=== PATIENT | female | born 1955 | race Two or more races ===

== ENCOUNTER 2025-04-30 02:18 | Emergency (ER) | payer MEDICARE, MEDICAID, SELFPAY ==
[2025-04-30 02:22] VITALS: BP 156/66; PULSE 76; RESP 18; TEMP 36.8; O2SAT 98
[2025-04-30 02:27] VITALS: PULSE 90
[2025-04-30 03:05] VITALS: BP 180/85; PULSE 78; RESP 16; TEMP 36.8; O2SAT 98
--- NOTE | 2025-04-30 03:15 | EDNOTE_ITS ---
ED Chest Pain RME/HPI General Chief Complaint: Anxiety Stated Complaint: HIGH BLOOD PRESSURE Time Seen by Provider: 04/30/25 03:11 Arrival date/time: 04/30/25 02:18 RME / HPI RME / HPI narrative: See MDM for Dr. dAkins's HPI Documentation. Related Data Home Medications ?Medication ?Instructions ?Recorded ?Confirmed amlodipine 10 mg tablet 10 mg PO QDAY 03/16/2403/16 buspirone 7.5 mg tablet 7.5 mg PO BID 03/16/2403/16 cyclobenzaprine 10 mg tablet 10 mg PO BID 03/16/2405/02 loratadine 10 mg tablet 10 mg PO QDAY 03/16/2403/16 Previous Rx's ?Medication ?Instructions ?Recorded atorvastatin 40 mg tablet 40 mg PO QDAY 30 days #30 ta bs 03/17/24 carvedilol 12.5 mg tablet 12.5 mg PO BID 30 days #60 t abs 03/17/24 lisinopril 20 mg tablet 20 mg PO QDAY PRN SBP >160 3 0 days 03/17/24 #30 tabs cefdinir 300 mg capsule 300 mg PO BID #14 caps 04/30 clonidine HCl 0.1 mg tablet 0.1 mg PO BID #60 tabs ondansetron 4 mg disintegrating 4 mg PO TID PRN nausea and 04/30/25 tablet vomiting 30 days #10 tabs Allergies Allergy/AdvReac Type Severity Reaction Status Date / Time No Known Allergies Allergy Unverified 04/29/24 18:22 Review of Systems Review of Systems Systems Reviewed: All systems reviewed, normal except as documented Past Medical History Past Medical History CARDIAC: Positive Cardiac Disorders, Hypercholesterolemia, Valvular Heart Disease and Hypertension RESPIRATORY: Positive Tuberculosis (30 years ago) GENITOURINARY: Positive Genitourinary Disorders MUSCULOSKELETAL: Positive Musculoskeletal Disorders, Arthritis and Osteoporosis PSYCHO/SOCIAL: Positive Anxiety OTHER HISTORY: Positive Hospitalization, Falls (few months ago), Chicken Pox and Measles Family History FAMILY HISTORY: Positive Family Cardiac Disorders Surgical History SURGICAL: Positive Section ED Exam Narrative Physical exam: See MDM for Dr. Adkins's Physical Exam Documentation. Course Course Course Narrative: CXR was ordered for determining the etiology of shortness of breath. Quality Measures none Orders Category Date Time Status Bedside COVID-19 Antigen Test NOW Care 04/30/25 03:13 Completed Bedside Influenza A&B Antigen Test NOW Care 04/30/25 03:13 Completed EKG (ED ONLY) *Do not use* NOW Care 04/30/25 03:15 Completed Saline [Insert IV] NOW Care 04/30/25 03:[address] chest abdomen pelvis wo Stat Exams 04/30/25 03:[address] head/brain wo con Stat Exams 04/30/25 03:16 Completed EKG (ED Only) Stat Exams 04/30/25 03:15 Draft XR chest 1V portable Stat Exams 04/30/25 03:15 Completed Amylase Stat Lab 04/30/25 03:45 Completed BNP [B-Type Natriuretic Peptide] Stat Lab 04/30/25 03:45 Completed Bilirubin,Direct Stat Lab 04/30/25 03:45 Completed CBC Stat Lab 04/30/25 03:45 Completed CMP [Comprehensive Metabolic Panel] Stat Lab 04/30/25 03:45 Completed CRP [C-Reactive Protein] Stat Lab 04/30/25 03:45 Completed ESR [Sed Rate (ESR)] Stat Lab 04/30/25 03:45 Completed Lipase Stat Lab 04/30/25 03:45 Completed Magnesium Stat Lab 04/30/25 03:45 Completed Procalcitonin Stat Lab 04/30/25 03:45 Completed TSH [Thyroid Stimulating Hormone] Stat Lab 04/30/25 03:45 Completed Troponin I Stat Lab 04/30/25 03:45 Completed UA, C/S IF [Urinalysis, C/S if Indicated] Stat Lab 04/30/25 03:39 Completed Urine Culture Stat Lab 04/30/25 03:39 Received Morphine Inj Med 04/30/25 03:15 Discontinued 2 mg IVP X1 ONE Ondansetron Inj [Zofran Inj] Med 04/30/25 03:13 Discontinued 4 mg IVP X1 ONE Sodium Chloride 0.9% 1000 ml [Ns] 1,000 ml Med 04/30/25 03:13 Discontinued IV 999 mls/hr cefTRIAXone/D5w 1gm IV premix [Rocephin/D5w 1gm IV Med 04/30/25 04:07 Discontinued premix] 1 gm in 50 ml IV X1 cloNIDine HCL [Catapres] Med 04/30/25 03:13 Discontinued 0.2 mg PO X1 ONE Vital Signs Vital signs: Vital Signs Temperature 98.3 F 08/22/25 02:22 Pulse Rate 76 04/30/25 02:22 Respiratory Rate 18 04/30/25 02:22 Blood Pressure 156/66 H 04/30/25 02:22 Pulse Oximetry (%) 98 04/30/25 02:22 Oxygen Delivery Method Room Air 04/30/25 02:22 Chest Pain MDM Narrative MDM Narrative:: Scribe Attestation: I, Lisbet Guo, am scribing for and in the presence of Dr. Adkins. This section includes all my notes and documentations, including HPI, PE, and ED course. 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 She took 10 mg of Lisinopril few hours ago. No other complaints. ROS: All negative except as documented in HPI. Physical Exam: General: Alert and oriented. No acute distress when remaining still. High BP noted. Eyes: Conjunctivae and lids clear. PERRL. EOMI. ENT: No nasal congestion. Neck: Supple. Heart: RRR. Lungs: No respiratory distress. Good air movement. No rhonchi, wheezing, rales. Abdomen: Soft and nontender. Normal bowel sounds. No distension. No rebound or guarding. Back: No CVA tenderness. Skin: Warm and dry. Neuro: Alert and oriented X 3. CN 2-12 grossly normal. No peripheral motor deficits. I reviewed all diagnostic test results: My interpretation of the EKG: NSR (71 bpm) with no ST-T changes. My interpretation of the chest x-ray is: NAD. My review of the Head/Brain CT report is: NAD. My review of the Chest/Abdomen/Pelvis CT report is NAD. Blood tests and urine tests remarkable for UTI. Covid/Influenza: negative. At this point, diagnoses include: UTI, Hypertension. Treatment here included: IVF, Rocephin 1 G, Morphine 2 mg, Zofran 4 mg, Catapres 0.2 mg. Significant improvement noted. Recommended outpatient care. Based on my best medical judgment, made decision no further evaluation or darshana tment indicated at this time. Patient understands and agrees to the discharge instructions customized and printed, see below. Discharge instructions from Dr. Adkins: 1.? After evaluation, there is no life-threatening condition. Such as stroke or brain tumor or heart attack. But you have UTI (see attached handout).? 2.? Take cefdinir to kill the germs causing the infection. 3.? For good hydration, increase oral fluid and maintain clear urine.? If dark or yellow, increase oral fluid. Zofran for nausea/vomiting.? 4. To keep your BP down: Take Clonidine 0.1 mg pill(s) every 12 hours as needed based on SBP (higher number of BP). SBP > 140, take one pill. SBP > 160, take two pills. SBP > 180, take three pills. SBP > 200, take four pills. 5.? See a private doctor on 05/03/2025 for recheck.?? Ask to review all test results and official radiology reports, to make sure you receive all necessary follow-ups and monitoring. Ask to check the final urine culture results from today to make sure cefdinir doesn't need to be changed due to resistance. To make sure there is no serious underlying heart condition, ask to help you get more tests for your heart that cannot be done here in the ER. Such as Holter Monitor (cardiac monitoring at home from a day to even a month), heart stress test (on treadmill or with medication), echocardiogram (imaging of your heart structures), heart catherization (checking for blockages in your heart arteries), and a referral to see a Serv[employer]en[employer] Administrator Developer. 6.? Seek immediate medical care with worsening, fever, SBP > 220, or with any concerns. Osei Adkins MD Patient data External records reviewed:: [facility] previous records (Reviewed prior ED records from 04/29/24. Patient was seen for Hypertension.) Clinical information provided by:: patient Social determinants that could affect healthcare access:: none Patient has the following chronic illnesses:: Hypercholesterolemia, Valvular Heart Disease, Hypertension, Tuberculosis, Arthritis, Osteoporosis, Anxiety How is presenting disease/condition affected by chronic disease/condition?: exacerbated by Evaluation data The following diagnostics were reviewed and interpreted by me:: EKG tracing(s) (My interpretation of the EKG: NSR (71 bpm) with no ST-T changes. Osei Adkins MD) Lab and/or radiology exams considered but not ordered:: None Interpretation Summary: I reviewed all diagnostic test results: My interpretation of the EKG: NSR (71 bpm) with no ST-T changes. My interpretation of the chest x-ray is: NAD. My review of the Head/Brain CT report is: NAD. My review of the Chest/Abdomen/Pelvis CT report is NAD. Blood tests and urine tests remarkable for UTI. Covid/Influenza: negative. Medications / Prescriptions Medications or Prescriptions considered but not ordered:: None Medication administrations:: Medication Administration History Discontinued Medications Clonidine (Clonidine Hcl 0.1 Mg Tablet) 0.2 mg PO X1 ONE Stop: 04/30/25 03:14 Last Admin: 04/30/25 04:08 Dose: 0.2 mg Documented By: CRYSTAL Sodium Chloride (Ns) 1,000 mls @ 999 mls/hr IV .Q1H1M ONE Stop: 04/30/25 04:13 Last Infusion: 04/30/25 05:09 Dose: Infused Documented By: Admin: 04/30/25 04:08 Dose: 999 mls/hr Documented By: CRYSTAL Ceftriaxone Sodium/Dextrose (Rocephin/D5w 1gm Iv Premix) 1 gm in 50 mls @ 100 mls/hr IV X1 ONE Stop: 04/30/25 04:36 Last Infusion: 04/30/25 05:36 Dose: Infused Documented By: Admin: 04/30/25 04:53 Dose: 100 mls/hr Documented By: CRYSTAL Morphine Sulfate (Morphine Sulf Inj 10 Mg/Ml Vial) 2 mg IVP X1 ONE Stop: 04/30/25 03:16 Last Admin: 04/30/25 04:07 Dose: 2 mg Documented By: CRYSTAL Ondansetron HCl (Ondansetron Inj 2 Mg/Ml Inj 2 Ml) 4 mg IVP X1 ONE; Protocol Stop: 04/30/25 03:14 Last Admin: 04/30/25 04:07 Dose: 4 mg Documented By: CRYSTAL IVF, Rocephin 1 G, Morphine 2 mg, Zofran 4 mg, Catapres 0.2 mg Consultations Consultation(s) initiated? (list below): No Diagnosis Chest Pain Differential Diagnosis: stable angina, unstable angina pectoris, atypical chest pain, st elevation myocardial infarction, costochondritis, chest pain and biliary colic Most likely diagnosis given after review of the tests above:: UTI, Hypertension Admission Indicated Admission indicated?: not indicated Explain why admission is indicated or not indicated:: With significant improvement and no condition needing emergent intervention, there was no indication for admission. Admission Request Was there a request for admission?: No Disposition Plan Disposition Plan: Discharge Discharge Attestation Discharge Attestation: The patient and all family members were given an opportunity to ask questions and understood the discharge instructions. Discharge instructions specifically effects, indications for sooner follow up or return to the emergency department, and the expected course of current diagnosis. Patient condition: Stable Discharge Plan Plan Patient Disposition: HOME (Self Care) Prescriptions/Referrals Prescriptions/Med Rec: New clonidine HCl 0.1 mg tablet 0.1 mg PO BID Qty: 60 0RF ondansetron 4 mg tablet,disintegrating 4 mg PO TID PRN (Reason: nausea and vomiting) 30 Days Qty: 10 0RF cefdinir 300 mg capsule 300 mg PO BID Qty: 14 0RF No Action buspirone 7.5 mg tablet 7.5 mg PO BID Patient Comments: take 1 tablet by mouth twice a day cyclobenzaprine 10 mg Tablet 10 mg PO BID amlodipine 10 mg tablet 10 mg PO QDAY loratadine 10 mg Tablet 10 mg PO QDAY carvedilol 12.5 mg tablet 12.5 mg PO BID 30 Days Qty: 60 3RF Rx Instructions: Take twice daily with meals. HOLD if systolic BP < 100. lisinopril 20 mg tablet 20 mg PO QDAY PRN (Reason: SBP >160) 30 Days Qty: 30 0RF atorvastatin 40 mg tablet 40 mg PO QDAY 30 Days Qty: 30 3RF Problem List Clinical Impression: UTI (urinary tract infection), Hypertension Patient/Caregiver Discharge Instructions Discharge Activity: activity as tolerated Education Materials: ED Hypertension, Established, ED CYSTITIS Female Adult Additional Instructions: Discharge instructions from Dr. Adkins: 1.? After evaluation, there is no life-threatening condition. Such as stroke or brain tumor or heart attack. But you have UTI (see attached handout).? 2.? Take cefdinir to kill the germs causing the infection. 3.? For good hydration, increase oral fluid and maintain clear urine.? If dark or yellow, increase oral fluid. Zofran for nausea/vomiting.? 4. To keep your BP down: Take Clonidine 0.1 mg pill(s) every 12 hours as needed based on SBP (higher number of BP). SBP > 140, take one pill. SBP > 160, take two pills. SBP > 180, take three pills. SBP > 200, take four pills. 5.? See a private doctor on 05/03/2025 for recheck.?? Ask to review all test results and official radiology reports, to make sure you receive all necessary follow-ups and monitoring. Ask to check the final urine culture results from today to make sure cefdinir doesn't need to be changed due to resistance. To make sure there is no serious underlying heart condition, ask to help you get more tests for your heart that cannot be done here in the ER. Such as Holter Monitor (cardiac monitoring at home from a day to even a month), heart stress test (on treadmill or with medication), echocardiogram (imaging of your heart structures), heart catherization (checking for blockages in your heart arteries), and a referral to see a Serv[employer] Administrator Developer. 6.? Seek immediate medical care with worsening, fever, SBP > 220, or with any concerns. Instrucciones de leidy del Dr. Adkins: 1. Tras la evaluaci?n, no se observa ninguna afecci?n potencialmente mortal. [place] un derrame cerebral, un tumor cerebral o un infarto. Shailesh tiene ita infecci?n urinaria (consulte el folleto adjunto). 2. Home Garden cefdinir para eliminar los g?rmenes que causan la infecci?n. 3. Para ita buena hidrataci?n, aumente la ingesta de l?quidos y mantenga la orina von. Si la orina es oscura o amarilla, aumente la ingesta de l?quidos. Zofr?n para las n?useas y los v?mitos. 4. Para controlar la presi?n arterial: Home Garden ita o m?s pastillas de clonidina de 0.1 mg cada 12 horas seg?n sea necesario, seg?n la presi?n arterial sist?lica (PAS). PAS > 140: tome ita pastilla. PAS > 160: tome dos pastillas. PAS > 180: tome yumiko pastillas. PAS > 200: tome cuatro pastillas. 5. Consulte con un m?dico particular el 03/05/2025 para iat nueva revisi?n. Solicite la revisi?n de todos los resultados de las pruebas y los informes radiol?gicos oficiales para asegurarse de recibir todos los seguimientos y la monitorizaci?n necesarios. Solicite la revisi?n de los resultados finales del urocultivo de hoy para asegurarse de que no sea necesario cambiar la dosis de cefdinir debido a la resistencia. Para asegurarse de que no haya ita afecci?n card?jaimee subyacente grave, solicite ayuda para realizar m?s pruebas card?acas que no se pueden realizar en urgencias. Kimberly un Holter (monitorizaci?n card?jaimee en casa desde un d?a hasta un mes), ita prueba de esfuerzo card?aco (en cinta o con medicaci?n), un e cocardiograma (im?genes de las estructuras card?acas), un cateterismo card?aco (para detectar obstrucciones en las arterias card?acas) y ita derivaci?n a un cardi?logo. 6. Busque atenci?n m?dica inmediata si presenta empeoramiento, fiebre, presi?n arterial sist?lica > 220 o si tiene alguna inquietud. Print Language: [place]orese Stand Alone Forms: [place] Award Info., Patient Portal Info Letter
--- NOTE | 2025-04-30 03:15 | EKG_ITS ---
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
--- NOTE | 2025-04-30 03:15 | XR_ITS ---
Examination: CT chest, without intravenous contrast. CT abdomen, without intravenous contrast. CT pelvis, without intravenous contrast. 2-D sagittal and coronal reconstructions. 3-D reconstructions. Date and time of exam:April 30, 2025, 0357 hours, comparison CT chest December 14, 2015. INDICATIONS: Onset chest pain abdominal pain and shortness of breath and vomiting today. CTDI vol (mgy) 14.5. DLP (MGycm)1004. Technique: Multiple CT images, 3.0 mm slice thickness, obtained chest, abdomen, pelvis, with the high-resolution 64 slice scanner.. Sagittal and coronal 2-D reconstructions are obtained. 3-D reconstructions Low dose protocols were performed. One or more of the following dose reduction techniques were used; automated exposure control, adjustment of the mA and/or KV according to patient size, use of iterative reconstruction technique. Findings: Thoracic aortic calcification no aneurysmal dilatation. Pulmonary artery segments are not enlarged. No paratracheal tracheobronchial or bronchopulmonary adenopathy No pneumonia pulmonary edema or pleural disease No liver or splenic or renal lesion Tiny gallstone Mesenteric edema No bowel obstruction No free air No pericecal inflammatory change Abundant stool in the rectum Contracted urinary bladder Prominent osteopenia Moderate narrowing hip joints IMPRESSION: No acute process in the chest Recommend gallbladder sonography to confirm small gallstones Edema in the mesentery, consider mesenteric radiculitis
--- NOTE | 2025-04-30 03:15 | XR_ITS ---
Examination: PA chest single view TECHNIQUE: Upright PA chest single view Date and time: April 30, 2025 0317 hours INDICATIONS: Chest pain shortness of breath today, high blood pressure today. FINDINGS: Normal heart size. Stable nodule right lower lobe compared with April 29, 2024 No interval pneumonia or pulmonary edema Moderate osteopenia IMPRESSION: No interval pneumonia or pulmonary edema
--- NOTE | 2025-04-30 03:16 | XR_ITS ---
Examination: CT brain head without contrast. 2-D sagittal coronal reconstructions Date and time of exam:April 30, 2025, 0400 hours. INDICATIONS: Onset high blood pressure with headache today. CTDI: vol (mGy):42.0. DLP: (mGycm):761. Technique: Multiple CT axial sections of the brain have been obtained, 5 mm slice thickness. Contrast has not been administered. 2-D sagittal, coronal reconstructions have been obtained Low dose protocols were performed. One or more of the following dose reduction techniques were used; automated exposure control, adjustment of the mA and/or KV according to patient size, use of iterative reconstruction technique. Findings: No significant ventricular enlargement. Intra-axial or extra-axial hemorrhage density is not seen. No mass effect or midline shift Basal cisterns are not remarkable. Fourth ventricle is midline. Cranial vault intact. Impression: Negative for acute hemorrhage, mass effect or midline shift Advise clinical correlation and follow up accordingly.
[2025-04-30 03:49] LABS: Collection Type, Urine Clean Catch
[2025-04-30 03:57] LABS: Bacteria,Urine 4+; Bilirubin,Urine Negative (Negative); Blood,Urine 2+ (Negative); Clarity,Urine Clear (Clear/Hazy); Color,Urine Lt-Yellow (Lt Yel-Yel); Glucose, Urine Negative (Negative); Hyaline Casts,Urine 1 /hpf (0-1); Ketones,Urine Negative (Negative); Leukocyte Esterase,Urine Positive (Negative); Nitrite,Urine Positive (Negative); PH,Urine 6.0 (5.0-7.0); Protein,Urine Negative (Neg - Trace); RBC,Urine 12 /hpf (0-3); Specific Gravity,Urine 1.020 (1.001-1.035); Squamous Epithelial Cell,Urine 2 /hpf (0-5); Urobilinogen,Urine Negative mg/dL (0.0-1.0); WBC,Urine 8 /hpf (0-5)
[2025-04-30 03:58] LABS: Sed Rate (ESR) 51 mm/hr (0-30)
[2025-04-30 04:00] LABS: Culture Indicated,Urine Yes
[2025-04-30 04:00] LABS: Basophils # (Auto) 0.0 Thou/mm3 (0.0-0.2); Basophils % (Auto) 0 % (0-2.5); Eosinophils # (Auto) 0.2 Thou/mm3 (0.0-0.5); Eosinophils % (Auto) 1 % (0-10); Hematocrit 38.3 % (36.0-46.0); Hemoglobin 12.1 g/dL (12.0-16.0); Immature Granulocytes Auto 0.07 Thou/mm3 (0.00-0.00); Lymphocytes # (Auto) 2.7 Thou/mm3 (1.0-4.8); Lymphocytes % (Auto) 22 % (10-50); Mean Corpuscular HGB Conc 31.6 g/dl (31.0-37.0); Mean Corpuscular Hemoglobin 28.3 pg (25.0-35.0); Mean Corpuscular Volume 90 fL (80-100); Monocytes # (Auto) 0.6 Thou/mm3 (0.0-0.8); Monocytes % (Auto) 5 % (0-12); Neutrophils # (Auto) 8.6 Thou/mm3 (1.8-7.7); Neutrophils % (Auto) 71 % (37-80); Nucleated Red Blood Cell # 0.00 Thou/mm3 (0.00-0.00); Nucleated Red Blood Cell % 0 /100 WBC (0); Platelet Count 208 Thou/mm3 (140-440); RDW Standard Deviation 46.2 fL (36.4-46.3); Red Blood Count 4.27 Miln/mm3 (4.00-5.20); White Blood Count 12.2 Thou/mm3 (3.6-11.0)
[2025-04-30] MEDS: MORPHINE SULF INJ 10 MG/ML VIAL 2 MG IVP (04:07)
[2025-04-30] MEDS: ONDANSETRON INJ 2 MG/ML INJ 2 ML 4 MG IVP (04:07)
[2025-04-30 04:08] VITALS: BP 171/84; PULSE 75
[2025-04-30] MEDS: SODIUM CHLORIDE 0.9% 1000 ML 1,000 ML 999 ML IV (04:08)
[2025-04-30 04:21] LABS: B-Type Natriuretic Peptide 56 pg/mL (0-100)
[2025-04-30 04:27] LABS: Alanine Aminotransferase 34 U/L (10-49); Albumin, Serum 4.3 gm/dL (3.4-4.8); Albumin/Globulin Ratio 1.8 (1.2-2.2); Alkaline Phosphatase 88 U/L (46-116); Amylase 89 U/L (30-118); Anion Gap 11 (7-16); Aspartate Amino Transferase 44 U/L (0-34); BUN/Creatinine Ratio 21 Ratio (12-20); Bilirubin,Direct < 0.1 mg/dL (0.0-0.3); Bilirubin,Total 0.2 mg/dL (0.3-1.2); Blood Urea Nitrogen 21 mg/dL (9-23); C-Reactive Protein < 0.5 mg/dL (0.0-0.9); Calcium 9.4 mg/dL (8.3-10.6); Calcium (Corrected) 9.4 mg/dL (8.5-10.1); Carbon Dioxide 20.1 mMol/L (20.0-31.0); Chloride 109 mMol/L (98-107); Creatinine (Component) 1.0 mg/dL (0.6-1.3); Globulin 2.4 gm/dL (2.3-3.5); Glucose 137 mg/dL (74-106); Lipase 36 U/L (12-53); Magnesium 2.0 mg/dL (1.6-2.6); Osmolality,Calculated 284 (275-295); Potassium 4.6 mMol/L (3.4-5.1); Procalcitonin 0.04 ng/ml (0.0-0.49); Sodium 140 mMol/L (136-145); Thyroid Stimulating Hormone 4.76 uIU/mL (0.55-4.78); Total Protein 6.7 gm/dL (5.7-8.2); Troponin I 0.022 ng/mL (0.0-0.045); eGFR > 60 See Note
--- NOTE | 2025-04-30 04:40 | PRELIM_ITS ---
CT scan of the head without intravenous contrast (axial sections with sagittal and coronal reformats). April 30, 2025 0400 hours Clinical History: Headache and high BP Comparison: None Findings: There is no intracranial hemorrhage, extra-axial collection, mass, mass-effect or midline shift. There is good sims-white differentiation. There is no CT evidence of acute large vascular territorial infarct. Ventricles are not enlarged or effaced. Nonspecific subcentimeter medial right thalamic calcification noted. There are vascular calcifications along the carotid siphons bilaterally. Visualized paranasal sinuses and tympanomastoid cavities are clear. The bony calvarium is intact. Impression: No intracranial hemorrhage, mass-effect or midline shift. No CT evidence of acute large vascular territorial infarct. Report Electronically Signed By: Ziyad Marrero 04/30/2025 4:39:05 AM [EST]
[2025-04-30] MEDS: cefTRIAXone/D5w 1gm IV premix 1 GM/50 ML BAG IV (04:53)
--- NOTE | 2025-04-30 05:17 | PRELIM_ITS ---
CT scan of the chest, abdomen and pelvis without intravenous contrast (axial sections with sagittal and coronal reformats). April 30, 2025 0357 hours Clinical History: CP SOB VOMITING Comparison: None Findings: Study is limited without IV contrast. Chest: Heart is normal in size. There is no pericardial or pleural effusion. There is no thoracic aortic aneurysm. There is atherosclerotic calcification along the thoracic aorta. Thyroid is not enlarged. There is no thoracic lymphadenopathy. There is dependent subsegmental atelectasis within the lungs. There is no pneumothorax. There is no acute osseous abnormality. Abdomen/pelvis: Few nonspecific sub-centimeter hepatic calcifications are noted and may be related to old healed granulomatous disease. Otherwise the unenhanced liver, gallbladder, spleen, pancreas, adrenals and kidneys are unremarkable there is mild circumferential unit bladder wall thickening. Repr oductive organs are unremarkable except for prior bilateral tubal ligation. There is underdistention of the stomach which limits evaluation. There is no bowel obstruction. Appendix not visualized but there is no obvious inflammatory change around the cecum. There is no free intraperitoneal air or fluid. There is no abdominal or pelvic lymphadenopathy. There is slight increase attenuation of the upper abdominal mesenteric fat which may indicate mesenteric panniculitis. There is no acute osseous abnormality. Impression: 1. No acute abnormality in the chest. 2. Possible mesenteric panniculitis. Report Electronically Signed By: Ziyad Marrero 04/30/2025 5:17:06 AM [EST]
[2025-04-30 05:19] VITALS: BMI 30.2
[2025-04-30 06:08] VITALS: BP 121/59; PULSE 71; RESP 118; TEMP 36.8
== END 2025-04-30 06:10 | disposition home or self-care (01) ==
LOC: SERX 06:01
PROVIDERS: Emergency Provider Emergency Medicine; PCP Nurse Practitioner Primary Care
DX: I10 Essential (primary) hypertension (principal); N39.0 Urinary tract infection, site not specified; R51.9 Headache, unspecified; R07.9 Chest pain, unspecified; R06.02 Shortness of breath; R11.2 Nausea with vomiting, unspecified; E78.00 Pure hypercholesterolemia, unspecified; I38 Endocarditis, valve unspecified
CPT/HCPCS: 36415; 70450; 71045; 71250; 74176; 80053; 81001; 82150; 82248; 83690; 83735; 83880; 84145; 84443; 84484; 85025; 85652; 86140; 87077; 87086; 87186; 87400; 87811; 93005; 96365; 96375; 99283; J0696; J2270; J2405; J7030; A9270

== ENCOUNTER → 2025-06-02 | Outpatient (CLI) | payer MEDICARE, MEDICAID, SELFPAY ==
--- NOTE | 2025-06-02 13:45 | XR_ITS ---
Examination: Screening digital mammography, bilateral Computer aided detection 3-D breast Tomosynthesis, bilateral Date and time of exam: June 02, 2025, 1329 hours, compared to mammograms dated to October 02, 2010 Indication: Screening Technique: Nonmagnified MLO, CC views of the breasts to been obtained, reconstructed from 3-D Tomosynthesis images. R2 computer aided detection program utilized for evaluation of suspicious masses and/or abnormal calcifications. 3-D Tomosynthesis images obtained. Findings: Scattered areas of fibroglandular density. Stable bilateral circumscribed small breast nodules No interval suspicious masses Impression: BI-RADS category II: Benign Findings. Recommend 1 year follow-up mammogram.
== END | disposition home or self-care (01) ==
PROVIDERS: PCP Nurse Practitioner Primary Care; Referring Provider Nurse Practitioner Primary Care; Visit Provider Nurse Practitioner Primary Care
DX: Z12.31 Encounter for screening mammogram for malignant neoplasm of breast (principal); R92.323 Mammographic fibroglandular density, bilateral breasts
CPT/HCPCS: 77063; 77067